=== PATIENT | female | born 2000 | race Caucasian/White ===

== ENCOUNTER 2020-05-31 00:01 | Inpatient (IN) ==
[2020-05-31] MEDS ORDERED: ONDANSETRON 4 MG TAB.RAPDIS PO PRN (00:32)
[2020-05-31] MEDS ORDERED: RINGER'S SOLUTION,LACTATED 1,000 ML IV ONE (00:32)
[2020-05-31] MEDS ORDERED: OXYTOCIN/0.9 % SODIUM CHLORIDE 30 UNITS/500 ML BAG IV ONE ×2 (00:32→15:22)
[2020-05-31] MEDS ORDERED: MISOPROSTOL 100 MCG TABLET VG PRN (00:32)
[2020-05-31] MEDS ORDERED: CALCIUM CARBONATE 500 MG TAB.CHEW PO ONE (01:09)
[2020-05-31] MEDS ORDERED: ONDANSETRON HCL/PF 2 MG/ML VIAL IV PRN (06:02)
[2020-05-31] MEDS ORDERED: NALOXONE HCL 1 MG/1 ML SYRG IV PRN (06:02)
[2020-05-31] MEDS ORDERED: BUPIVACAINE HCL/0.9 % NACL/PF 250 ML EP PRN (06:02)
[2020-05-31] MEDS ORDERED: BUPIVACAINE HCL/PF 30 ML VIAL EP SCH (06:15)
--- NOTE | 2020-05-31 06:34 | ANES ---
Anesthesia Pre Procedure Eval Vitals/Labs: Last Vital Signs Temp 37.2 C 05/31/20 01:32 Pulse 89 05/31/20 01:32 Resp 18 05/31/20 01:32 BP 132/72 05/31/20 01:32 Pulse Ox 98 05/31/20 01:32 HOME MEDICATIONS prenat.vits,renee,roe-vndg-xqdpv 1 tab PO DAILY 10/26/19 [Last Taken Unknown] breast pump See Rx Instructions .ROUTE .MEDSUPPLY #1 ea 03/06/20 [Last Taken Unknown] ferrous sulfate 325 mg (65 mg iron) tablet,delayed release 325 mg PO DAILY #30 tab 03/07/20 [Last Taken Unknown] famotidine 20 mg tablet 20 mg PO DAILY 05/22/20 [Last Taken Unknown] Allergies/Adverse Reactions: Allergies Allergy/AdvReac Type Severity Reaction Status Date / Time No Known Allergies Allergy Verified 05/31/20 00:32 - Planned Procedure Planned Procedure: Labor Epidural Medication List Reviewed:: Yes Allergies Verified: Yes Medical History (Last Reviewed 05/31/20 @ 00:33 by Mine Proctor RN) Body piercing Onset Date: Unknown Tattoos Onset Date: Unknown Chlamydia Onset Date: ~2014 Tx'd Frequent UTI Onset Date: Unknown Heart murmur Onset Date: ~2015 cardiac workups x2 Syncope Onset Date: ~2015 cardiac workups x2 Surgical History (Last Reviewed 05/31/20 @ 00:33 by Mine Proctor RN) No significant past surgical history Family History (Last Reviewed 05/31/20 @ 00:34 by Mine Proctor RN) Aunt Raynauds disease Mother Hypertension Hypothyroidism Hyperlipemia Hypertriglyceridemia GERD (gastroesophageal reflux disease) History of pre-eclampsia x2 Father Enlarged pancreas d/t drinking Enlarged liver d/t drinking - Anesthesia Assessment and Plan ASA Class: PS, II Anesthesia Type Plan: Epidural
--- NOTE | 2020-05-31 06:53 | ANES ---
Post Anesthesia Assessment - Vital Signs Vitals: Last Vital Signs Temp 37.2 C 05/31/20 01:32 Pulse 89 05/31/20 01:32 Resp 18 05/31/20 01:32 BP 132/72 05/31/20 01:32 Pulse Ox 98 05/31/20 01:32 Airway Patency: Normal - Mental Status Level Of Consciousness: Awake - N/V Assessment Nausea/Vomiting Presence: None Dehydration:: No
--- NOTE | 2020-05-31 06:53 | ANES ---
Anesthesia Procedure Note Procedure Note: ANESTHESIA PROCEDURE NOTE Date of Procedure: 05/31/2020. Time of procedure: 634. Performed by: Ori Aj CRNA Trade Facilitator: None. Preprocedure diagnosis: Active labor. Post procedure diagnosis: Same. Procedure: Insertion of labor epidural. Indications: The patient is a 20-year-old female in active labor requesting labor epidural for pain management. Findings: See below. Details of the procedure: The patient was placed in a sitting position. DuraPrep as well as Betadine swabs X3 was applied to the patient's back. Patient was then draped in a sterile fashion. Lidocaine 1% was infiltrated to the skin and subcutaneous tissues at the level of the L3-4 interspace. The epidural space was identified using a 18-gauge Tuohy needle with [id number] technique. Epidural catheter was inserted to a depth of 10 centimeters at skin. Negative test dose was elicited using 3 mL of 1.5% preservative-free lidocaine plus epinephrine 1 200,000. The epidural catheter was then taped and secured in place. A loading dose of 8 mL of 0.25% preservative-free bupivacaine was administered to the epidural catheter after negative aspiration for blood and CSF. EBL: Minimal. Fluids: N/A. Specimen: N/A. Post procedure condition: The patient tolerated the procedure well. No complications were noted. Thank you for this consultation. Ori Aj CRNA
[2020-05-31] MEDS ORDERED: CALCIUM CARBONATE 500 MG TAB.CHEW PO SCH (10:00)
--- NOTE | 2020-05-31 10:23 | HP ---
Chief Complaint - Chief Complaint Date of Service: 05/31/20 Time of Service: 07:20 Chief Complaint: Elective induction of labor History of Present Illness: 20 yo at 40 wks presents to L&D for elective induction of labor. This complicated by anemia, history of heart murmur and syncope with negative cardiac work-up x 2. Rh positive Rubella immune GBS negative Medical History (Last Reviewed 05/31/20 @ 10:13 by Jorge Davalos DO) Body piercing Onset Date: Unknown Tattoos Onset Date: Unknown Chlamydia Onset Date: ~2014 Tx'd Frequent UTI Onset Date: Unknown Heart murmur Onset Date: ~2015 cardiac workups x2 Syncope Onset Date: ~2015 cardiac workups x2 Surgical History: Surgical History (Last Reviewed 05/31/20 @ 10:13 by Jorge Davalos DO) No significant past surgical history Family History: Family History (Last Reviewed 05/31/20 @ 10:13 by Jorge Davalos DO) Aunt Raynauds disease Mother Hypertension Hypothyroidism Hyperlipemia Hypertriglyceridemia GERD (gastroesophageal reflux disease) History of pre-eclampsia x2 Father Enlarged pancreas d/t drinking Enlarged liver d/t drinking Social History: (Last Reviewed 05/31/20 @ 10:13 by Jorge Davalos DO) Social History: adopted: No senior care: No Marital status: Single household members: significant other number of children: 0 current occupational status: employed 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 current occupational exposures/hazards: No Highest education level completed: Associate degree: academi Sexually Active: Yes Service: No Tobacco: Smoking Status: Former smoker Alcohol: alcohol intake: current alcohol intake frequency: a few times a month details: No alcohol since + UPT Substance Use: substance use type: does not use Dietary Habits: caffeine: Yes caffeine comment: 2/week Type: carbonated beverages Exercise: frequency: does not exercise Ita/Hindu: agree to transfusion: Yes Review Of Systems (GEN) - Review of Systems Generalized/Overall Review: Present: No Symptoms Reported EENTM: Present: No Symptoms Reported Respiratory: Present: No Symptoms Reported Cardiac: Present: No Symptoms Reported Abdominal: Present: No Symptoms Reported Genitourinary: Present: No Symptoms Reported Musculoskeletal: Present: No Symptoms Reported Neurological: Present: No Symptoms Reported Skin: Present: No Symptoms Reported Endocrine: Present: No Symptoms Reported Allergies/Adverse Reactions: Allergies Allergy/AdvReac Type Severity Reaction Status Date / Time No Known Allergies Allergy Verified 05/31/20 00:32 Home Medications: HOME MEDICATIONS prenat.vits,renee,idd-qxca-qgczy 1 tab PO DAILY 10/26/19 [Last Taken Unknown] breast pump See Rx Instructions .ROUTE .MEDSUPPLY #1 ea 03/06/20 [Last Taken Unknown] ferrous sulfate 325 mg (65 mg iron) tablet,delayed release 325 mg PO DAILY #30 tab 03/07/20 [Last Taken Unknown] famotidine 20 mg tablet 20 mg PO DAILY 05/22/20 [Last Taken Unknown] Exam - Exam Vital Signs: Vital Signs - Last Taken Temp 37.2 C 05/31/20 01:32 Pulse 89 05/31/20 01:32 Resp 18 05/31/20 01:32 BP 132/72 05/31/20 01:32 Pulse Ox 98 05/31/20 01:32 Constitutional: Present: Alert, Oriented x3, Cooperative, No distress ENT Exam: Present: hearing grossly normal Neck: Present: non-tender, trachea midline. Absent: thyromegaly Breasts: Present: Exam deferred Respiratory: Present: lungs clear, no respiratory distress Cardiovascular/Chest: Present: normal peripheral pulses, regular rate, rhythm Abdomen: Present: soft, nontender, no rebound tenderness, other - gravid /Rectal: Present: Other - Cervix - 2/60/-2 Extremity: Present: no pedal edema, no calf tenderness Skin Exam: Present: normal color, warm/dry, no cyanosis Neurologic: Present: alert, normal mood/affect, oriented x 3 Appearance: Present: appropriate appearance, appropriate insight Eye contact: Present: cooperative, good eye contact Thoughts: Present: normal thought pattern, normal mood /affect Assessment/Plan - Assessment/Plan (1) Elective induction of labor planned Assessment: Admit for induction of labor. Epidural and pitocin PRN. Problem: Acute
--- NOTE | 2020-05-31 10:28 | PN ---
Progess Note - Interim Date: 05/31/20 Time: 07:10 Narrative: 05/31/20 10:27 Patient comfortable with epidural Vital signs stable. Status post Cytotec x1 at 0105 FHT: 130 baseline, reassuring contractions q 1-2 min Cervix: 3/90/-2, AROM-clear Impression: Intrauterine at 40 weeks here for elective induction of labor Plan: IUPC placed to better assess contraction pattern. Continue present plan
[2020-05-31] MEDS ORDERED: GLYCERIN/WITCH HAZEL LEAF 40 APPL BOX TP PRN (15:22)
[2020-05-31] MEDS ORDERED: BENZOCAINE/MENTHOL 81 SPRAY CAN TP PRN (15:22)
[2020-05-31] MEDS ORDERED: HYDROCORTISONE 30 APPL TUBE TP PRN (15:22)
[2020-05-31] MEDS ORDERED: IBUPROFEN 800 MG TABLET PO PRN (15:22)
[2020-05-31] MEDS ORDERED: oxyCODONE HCL/ACETAMINOPHEN 1 TAB TABLET PO PRN (15:22)
[2020-05-31] MEDS ORDERED: SENNOSIDES 8.6 MG TABLET PO PRN (15:22)
[2020-05-31] MEDS ORDERED: BISACODYL 10 MG SUPP.RECT RC PRN (15:22)
--- NOTE | 2020-05-31 15:31 | OR ---
Operative Report - Dictated Report Narrative: Spontaneous vaginal delivery of viable female at 1442 on 05/31/2020 with Apgars 7 and 9, weighing 3632 g in KRISTEN position with a loop of cord on the chest and face. Cord clamping delayed approximately 1 minute Placenta delivered complete, intact, with three vessel cord Estimated blood loss: 100 mL Anesthesia: Epidural Lacerations: First-degree vaginal laceration repair with 3-0 Vicryl Rapide. Bilateral first-degree labial lacerations repaired with 4-0 Vicryl Rapide. History for History for Definition: * The number of deliveries resulting in a live the patient experienced prior to current hospitalization * The previous delivery of live twins or any live multiple gestation is considered one live event. *If primagravida or nulliparous is documented select zero for the number of previous live births. Live Events: Live Events: 0
[2020-05-31] MEDS: IBUPROFEN 800 MG TABLET PO PRN (19:39)
[2020-05-31] MEDS: DOCUSATE SODIUM 100 MG CAPSULE PO SCH (20:58)
[2020-06-01] MEDS: IBUPROFEN 800 MG TABLET PO PRN ×2 (02:54→11:55)
--- NOTE | 2020-06-01 08:47 | PN ---
Subjective - Date and Time Seen Date: 06/01/20 Time: 08:46 Objective - Vitals Vitals: Last Vital Signs Temp 36.6 C 06/01/20 07:24 Pulse 71 06/01/20 07:24 Resp 16 06/01/20 07:24 BP 131/73 06/01/20 07:24 Pulse Ox 98 06/01/20 07:24 Patient denies complaints. Lochia wnl abdomen - soft, nontender Uterus -firm, at umbilicus - 1 No calf tenderness Impression: day #1 - s/p spontaneous vaginal delivery. Plan: Continue routine care Cauti Physician Documentation - Urinary Catheter Management Urethral (Medrano) Date of Insertion: 05/31/20 Time of Insertion: 07:30 Assessment/Plan - Problems/Diagnosis (1) Elective induction of labor planned Problem: Acute
[2020-06-01] MEDS: DOCUSATE SODIUM 100 MG CAPSULE PO SCH ×2 (11:55→20:53)
[2020-06-01] MEDS: PRENATAL VITS96/IRON FUM/FOLIC 1 TAB TABLET PO SCH (11:55)
[2020-06-01] MEDS: FERROUS SULFATE 325 MG TABLET PO SCH (11:56)
[2020-06-02] MEDS: IBUPROFEN 800 MG TABLET PO PRN (06:03)
[2020-06-02 07:38] VITALS: BP 132/79
--- NOTE | 2020-06-02 09:37 | PN ---
Subjective - Date and Time Seen Date: 06/02/20 Time: 09:37 Objective - Vitals Vitals: Last Vital Signs Temp 36.6 C 06/02/20 07:10 Pulse 59 L 06/02/20 07:10 Resp 18 06/02/20 07:10 BP 132/79 06/02/20 07:10 Pulse Ox 100 06/02/20 07:10 Patient denies complaints. Breast-feeding Lochia wnl abdomen - soft, nontender Uterus -firm, at umbilicus - 2 No calf tenderness Impression: day #2 - s/p spontaneous vaginal delivery. Plan: Routine discharge instructions Cauti Physician Documentation - Urinary Catheter Management Urethral (Medrano) Date of Insertion: 05/31/20 Time of Insertion: 07:30 Assessment/Plan - Problems/Diagnosis (1) Elective induction of labor planned Problem: Acute
[2020-06-02] MEDS: PRENATAL VITS96/IRON FUM/FOLIC 1 TAB TABLET PO SCH (09:49)
[2020-06-02] MEDS: FERROUS SULFATE 325 MG TABLET PO SCH (09:50)
[2020-06-02] MEDS: DOCUSATE SODIUM 100 MG CAPSULE PO SCH (09:50)
== END 2020-06-02 13:30 | disposition home or self-care (01) | DRG 807 ==
LOC: OB 00:02
PROVIDERS: ADMIT Obstetrics & Gynecology; ATTEND Obstetrics & Gynecology